=== PATIENT | female | born 1995 | race Caucasian/White ===

== ENCOUNTER 2023-05-18 11:56 | Emergency (ER) | payer SELFPAY ==
[~2023-05-18] VITALS: Ht 172.7 cm; Wt 91.0 kg
[2023-05-18 12:00] VITALS: BP 123/86; O2SAT 100
[2023-05-18 16:14] VITALS: PULSE 86; RESP 16; TEMP 98.8
== END 2023-05-18 16:21 | disposition home or self-care (01) ==
LOC: ER 11:56
DX: Z04.1 Encounter for examination and observation following transport accident (principal); V98.8XXA Other specified transport accidents, initial encounter; Y93.89 Activity, other specified; Y92.89 Other specified places as the place of occurrence of the external cause; Y99.8 Other external cause status
CPT/HCPCS: 73030; 81025; 99283